=== PATIENT | male | born 1940 | race Caucasian/White ===

== ENCOUNTER → 2017-05-28 | Outpatient (CLI) | payer MEDICARE, OTHER ==
[2017-05-28 14:40] LABS: HCT 43.2 % (39.0-53.0); HGB 14.8 gm/dL (13.0-17.5); MCH 32.2 pg (25.0-35.0); MCHC 34.3 g/dL (31.0-37.0); Mean Platelet Volume 6.7; Platelet Count 184 k/uL (150-450); RDW 13.2 % (11.5-15.5); WBC 5.5 k/uL (3.8-10.6)
[2017-05-28 14:49] LABS: ALT 37 U/L (21-72); AST 23 U/L (17-59); Albumin 4.6 g/dL (3.5-5.0); Alkaline Phosphatase 45 U/L (38-126); Anion Gap 10 mmol/L; Blood Urea Nitrogen 33 mg/dL (9-20); Calcium 9.9 mg/dL (8.4-10.2); Carbon Dioxide 28 mmol/L (22-30); Chloride 103 mmol/L (98-107); Glucose 107 mg/dL (74-99); Potassium 4.8 mmol/L (3.5-5.1); Sodium 141 mmol/L (137-145); Total Bilirubin 0.7 mg/dL (0.2-1.3)
[2017-05-28 14:57] LABS: Appearance,Urine Clear (Clear); Bilirubin,Urine Negative (Negative); Blood,Urine Negative (Negative); Color,Urine Yellow; Glucose,Urine (UA) Negative (Negative); Ketones,Urine Negative (Negative); Leukocyte Esterase,Urine Negative (Negative); Nitrite,Urine Negative (Negative); PH, Urine 5.5 (5.0-8.0); Protein,Urine Trace (Negative); Specific Gravity,Urine 1.025 (1.001-1.035)
[2017-05-28 15:02] LABS: Prothrombin Time 26.5 sec (9.0-12.0)
== END | disposition home or self-care (01) ==
LOC: LABPAT 13:47
PROVIDERS: ATTEND Orthopaedic Surgery Sports Medicine
DX: Z01.812 Encounter for preprocedural laboratory examination (principal); Z01.818 Encounter for other preprocedural examination
CPT/HCPCS: 36415; 80053; 81003; 85027; 85610; 85730; 87070

== ENCOUNTER 2017-06-06 11:32 | Inpatient (IN) | payer MEDICARE, OTHER ==
[~2017-06-06 11:32] MED LIST: ACETAMINOPHEN TAB 500 MG TAB PO ONE; DEXAMETHASONE SOD PHOSPHATE 10 MG/ML 1 ML VIAL IV ONE; LACTATED RINGERS 1,000 ML IV SCH; LIDOCAINE 1% 20 ML VIAL (10MG/ML) FOR IV START INTRADERMA PRN; MELOXICAM 7.5 MG TAB PO ONE; MIDAZOLAM 2 MG/2 ML VIAL IV PRN; ONDANSETRON 4 MG/2 ML VIAL IVP ONE; ROPIVACAINE 246.25 MG, EPINEPHrine 0.5 MG, KETOROLAC 30 MG, cloNIDine HCL/PF 80 MCG, WA... MISCELLANE ONE; SCOPOLAMINE 1.5MG/72HR PATCH TRANSDERM ONE; TRANEXAMIC ACID 1,000 MG in SODIUM CHLORIDE 0.9% 50 ML IVPB ONE; ceFAZolin IN SWFI 2 GM/20 ML SYRINGE IVP ONE
[2017-06-06 12:49] LABS: INR 1.3 (<1.2); Prothrombin Time 11.9 sec (9.0-12.0)
[2017-06-06] MEDS ORDERED: ROCURONIUM BROMIDE 10 MG/ML 10 ML VIAL IV ONE (13:34)
[2017-06-06] MEDS ORDERED: SODIUM CHLORIDE 0.9% 100 ML BAG ONE (13:34)
[2017-06-06] MEDS ORDERED: PROPOFOL 10 MG/ML 20 ML VIAL IV ONE (13:34)
[2017-06-06] MEDS ORDERED: fentaNYL (PF) 50 MCG/ML 2 ML AMP ONE (13:34)
[2017-06-06] MEDS ORDERED: GLYCOPYRROLATE 0.2 MG/ML 2 ML VIAL ONE (13:34)
[2017-06-06] MEDS ORDERED: NEOSTIGMINE 1 MG/ML 10 ML VIAL ONE (13:34)
[2017-06-06] MEDS ORDERED: MIDAZOLAM 2 MG/2 ML VIAL ONE (13:34)
[2017-06-06] MEDS ORDERED: LABETALOL 5 MG/ML VIAL MDV ONE (13:34)
[2017-06-06] MEDS ORDERED: TRANEXAMIC ACID 1,000 MG/10 ML VIAL ONE (13:34)
[2017-06-06] MEDS ORDERED: PHENYLEPHRINE-0.9% NACL SYG 1 MG/10 ML SYRINGE ONE (13:34)
[2017-06-06] MEDS ORDERED: LIDOCAINE 1% INJ 10MG/ML (20 ML MDV) ONE (13:34)
[2017-06-06] MEDS ORDERED: SUCCINYLCHOLINE CHLORIDE 100 MG/5 ML SYR IV ONE (13:34)
[2017-06-06] MEDS ORDERED: ceFAZolin 1,000 MG in SODIUM CHLORIDE 0.9% 1,000 ML IRRIGATION ONE ×5 (13:43→15:03)
[2017-06-06] MEDS ORDERED: NALOXONE 0.4 MG/ML 1 ML VIAL IV PRN (15:54)
[2017-06-06] MEDS ORDERED: MAGNESIUM HYDROXIDE 2,400 MG/10 ML CUP PO PRN (15:54)
[2017-06-06] MEDS ORDERED: HYDROcodone/APAP 7.5-325MG 1 EACH TAB PO PRN ×2 (15:54)
[2017-06-06] MEDS ORDERED: TEMAZEPAM 15 MG CAP PO PRN (15:54)
[2017-06-06] MEDS ORDERED: ONDANSETRON 4 MG/2 ML VIAL IVP PRN (15:54)
[2017-06-06] MEDS ORDERED: NA PHOS,M-B/NA PHOS,DI-BA 133 ML ENEMA RECTAL PRN (15:54)
[2017-06-06] MEDS ORDERED: BISACODYL 10 MG SUPP RECTAL PRN (15:54)
[2017-06-06] MEDS ORDERED: hydrOXYzine PAMOATE 25 MG CAP PO PRN (15:54)
[2017-06-06] MEDS ORDERED: traMADol 50 MG TAB PO PRN (15:54)
[2017-06-06] MEDS ORDERED: DIAZEPAM 5 MG TAB PO PRN (15:54)
[2017-06-06] MEDS ORDERED: HYDROmorphone 4 MG/ML 1 ML SYRINGE IVP PRN ×3 (15:54)
[2017-06-06] MEDS: HYDROmorphone 0.5 MG/0.5 ML SYRINGE IVP PRN ×6 (15:55→16:34)
--- NOTE | 2017-06-06 16:15 | XR ---
Limited left knee HISTORY: Status post left knee arthroplasty 2 views of the left knee Patient is status post left knee arthroplasty. There is anatomic alignment. Lucency in the soft tissu es compatible with postop state. IMPRESSION: Orthopedic follow-up
--- NOTE | 2017-06-06 17:13 | OP ---
OPERATIVE REPORT DATE OF PROCEDURE: 06/06/2017 PREOPERATIVE DIAGNOSIS: Left knee osteoarthrosis. POSTOPERATIVE DIAGNOSIS: Left knee osteoarthrosis. OPERATION: Left total knee arthroplasty. ANESTHESIA: Spinal with sedation. SURGEON: Ayo Guthrie MD. INTERNET PROJECT MANAGER: Juan Syed PA-C. ESTIMATED BLOOD LOSS: 100 mL. TOURNIQUET TIME: 59 minutes at 250 mmHg. COMPLICATIONS: None apparent. DRAINS: None. DISPOSITION: Post-Anesthesia Care Unit. INDICATIONS: Dariel is a very pleasant 76-year-old male with longstanding history of left knee pain. History and physical examination are consist with advanced left knee osteoarthrosis. He has been through significant nonoperative management up to this point. Further treatment options were discussed and he has decided to go forward with left total knee arthroplasty. The risks of the procedure were discussed with him in detail. These risks include but not limited to risk of infection, nerve damage, bleeding, pain, and a small risk of deep vein thrombosis which could lead to fatal pulmonary embolism. There is also risk of loosening of the implant which could require revision operation. The patient understands these risks. All of his questions were answered to his satisfaction. Appropriate informed consent was obtained. PROCEDURE DESCRIPTION: The patient was identified in the preoperative holding area. Surgical site was marked by both the patient and myself. He was given 2 grams of Ancef IV for prophylactic purposes. He was then transferred to the operative suite and was placed supine on the operating room table. A spinal anesthetic was then administered and dosed per the anesthesia department without apparent complication. Examination under anesthesia was then performed. The patient was 5 degrees shy of full extension. He had 100 degrees of flexion. The medial collateral ligament, lateral collateral ligament and posterior cruciate ligaments were stable. Tourniquet was then placed high on the left upper thigh and well padded in preparation for surgery. The patient's left lower extremity was then prepped and draped in the usual sterile fashion. A standard surgical pause was then undertaken to ensure that we were operating on the correct site and that appropriate preoperative antibiotics had been given. All staff in the room were in agreement and we proceeded. The outlines of the patella were marked with a surgical pen. A planned 12 cm vertical incision centered over the patella was marked with the surgical pen. The leg was then exsanguinated with an Esmarch dressing. The knee was then flexed and the tourniquet was inflated to 250 mmHg. The total tourniquet time for the procedure was 59 minutes. Incision was then made with a 10 blade scalpel. Dissection was carried down sharply to the overlying fascia. Great care was taken to minimize the skin flaps. The knee was then exposed using a standard medial parapatellar approach. A small cuff of quadriceps tendon was left for suturing. He was in a bit of varus preoperatively. A standard medial release was then made. Superficial medial collateral ligament was dissected off the bone around to the posterior aspect of the proximal tibia. The medial meniscus was then excised as well. The lateral meniscus was also released anteriorly. The leg was then externally rotated. The patella was everted and the knee was flexed. Retractors were then placed to protect the collateral ligaments. I then proceeded to remove the infrapatellar fat pad. This was excised sharply tangentially with the fibers of the patellar tendon. I then proceeded to remove the peripheral osteophytes. This was done with a rongeur. I then proceeded with the distal femoral resection. He did have a small flexion contracture. An extra 2 mm resection was planned for. This was an 11 mm resection. The femoral canal was then entered in the midline of the femur approximately 10 mm anterior to the origin of the posterior cruciate ligament. The anay was then advanced down to the center of the femur and placed intramedullary. Based on preoperative radiographs, the angle between the anatomic and mechanical axis of the femur was approximately 4 to 5 degrees. The valgus angle of the distal femoral cutting guide was then set at 4 degrees for the left knee. The distal femoral cutting guide was then advanced over the intramedullary anay. This was seated firmly against the femur. I then, as mentioned, planned to take 11 mm off the distal femur. The cutting block was then secured onto the femur with pins. The jig was then removed and the distal femoral cut was made through the slot of the block. The pins were then removed. The distal femoral cutting block was removed. The accuracy of the distal femoral cuts was checked with 2 flat bars. I then proceed with femoral sizing. The posterior referencing sizing guide was held firmly against the resected distal surface of the femur. The posterior condyles were resting on the posterior plane of the guide. The sizing stylus was then placed onto the anterior femur. The size was measured as a size 10. I then assessed for femoral rotation. The plan was for 3 degrees of external rotation. Three degrees of external rotation was placed onto the jig. These holes were then marked. I then confirmed the rotation by 3 separate methods. This was done using the epicondylar axis as well as Whitesides line and posterior referencing. It was deemed that the external rotation was proper. I then went forward with placing the femoral cutting block. This was placed over the previously placed pin holes. The scot wing was then placed onto the anterior slots to ensure that we would not notch the anterior femur with the anterior femoral cut. I then proceeded with the anterior femoral cut. This was flush with the anterior cortex of the femur. The posterior cuts were then made followed by the anterior chamfer cut and then the posterior chamfer cut. The cutting block was then removed. Throughout the resection, the collateral ligaments were protected with retractors. I then placed a trial size 10 femur. It fit very nice medial to lateral and fit flush with the distal end of the femur. The drill holes were then made. I then proceed with the tibial cut. I planned for a cruciate-retaining knee. The guide was placed and set for varus, valgus and for slope. The height was set for an approximate 2 mm resection from the medial tibial plateau, which was the lower side. I was happy with the alignment and the amount of resection. The cutting block was then pinned to the proximal tibia. The alignment anay was removed and the proximal tibia was resected with a reciprocating saw. Again this was done with retractors protecting the collateral ligaments as well as the posterior cruciate ligament. I then proceeded to evaluate the flexion and extension gaps. A 10 mm block was placed. The flexion and extension gaps were equal. I then proceeded with resection of the posterior osteophytes. He had moderate posterior osteophytes. This was done using a curved osteotome. This resected the posterior osteophytes, and posterior capsule stripping was also done off the posterior aspect of the femur at this time. The osteophytes were removed. I then proceeded with resection of the patella. The thickness of the patella was measured using a caliper. The thickness was 25 mm. Thickness of the anticipated patellar dome was taken into account. The resection was then performed and confirmed to be equal in 4 quadrants using a caliper. Approximately 14 mm of bone remained after the resection. A 35 x 9 standard patellar trial was then placed. The holes were then drilled and the trial was then placed. I then proceeded with sizing the tibial plate. A size G tibial plate fit very nicely. I then placed the trial femur and the tibial tray and the patellar button. A 10 mm trial tibial insert was also placed. The components fit very nicely. He had full extension and flexion. The extension and flexion gaps were equal and stable to both varus and valgus stress. The patella tracked appropriately. Tibial tray rotation was marked with a Bovie. This was externally rotated properly. I then proceed with tibial preparation. I first drilled the femoral holes and removed the femoral component. The tibial tray was then set for proper external rotation as well as mediolateral placement onto the tibia. It was then pinned into place. I then proceeded with punching the keel. I then decided to proceed with cementing of all of our components. The knee was thoroughly irrigated with sterile saline solution via pulse lavage. The lateral geniculate artery was identified and cauterized. All blood was removed from the bone of the tibia, femur and patella with pulse lavage. I then proceed with cementing. Two packs of antibiotic bone cement were prepared on the back table by the surgical elastic knitter hand frame. I then proceeded with cementing of the tibia first. The cement was impacted into the keel as well as deeply seated into the bone. A second coat of cement was then placed. The tibia was then impacted into place. Excess cement was removed with tissue Daniel's and jokers. I then proceeded with cementing of the femoral component. Femoral component was also cemented using standard technique. Excess cement was removed. A 10 mm trial insert was placed into the knee. It was brought into full extension with a constant axial load placed until the cement had hardened. The patellar component was then cemented. This was held firmly with a compressive device until the cement had dried. When the cement had dried, the knee was taken out of extension. All excess cement was removed from around the prosthesis. I then trialed the knee with a 10 mm insert. Flexion and extension gaps were appropriate. The knee was stable. It came into full extension. I decided to go forward with a 10 mm cross-linked cruciate-retaining tibial insert. The polyethylene was then placed onto the tibial tray and locked into place. The knee was then reduced. The knee was again further irrigated with sterile saline solution with antibiotic added. The tourniquet was then deflated. Total tourniquet time for the procedure was 59 minutes at 250 mmHg. Final components were Melania Persona size 10 cruciate-retaining femoral component, a size G tibial tray, a 10 mm medial-congruent cruciate-retaining polyethylene insert and a 35 x 9 mm patella. I then proceeded with closure. Again the knee was thoroughly irrigated. The quadriceps tendon and the medial retinaculum were reapproximated with #2 Ethibond suture. The extensor mechanism was then closed with a running #2 Quill suture. Subcutaneous tissues were then closed with 2-0 Vicryl interrupted suture. The skin was closed with a running 3-0 Quill suture. Dermabond was applied to the incision. Sterile compressive dressing was then applied. All sponge and needle counts were deemed correct prior to closure. The patient tolerated the procedure without apparent complication. He was transferred to the recovery room in stable condition. MMODL / ELON: [id number] /
[2017-06-06 17:40] VITALS: BMI 29.3
[2017-06-06] MEDS ORDERED: WARFARIN 5 MG TAB PO ONE (18:00)
--- NOTE | 2017-06-06 18:07 | P.CONS ---
History of Present Illness - Reason for Consult Atrial fibrillation, DVT, gastroesophageal reflux disease - History of Present Illness Patient is a very pleasant 76-year-old gentleman was admitted for severe osteoarthritis of the left knee and elective surgery for left knee osteoarthritis patient postoperatively clinically doing well did not pass gas yet I saw him in the immediate postoperative period patient blood pressure is stable patient does have history of atrial fibrillation rate controlled at this point of time patient had history of DVT in the past after surgery in the left leg for which patient was on Coumadin which is being temporally held for his surgery patient was resumed back on 5 mg of Coumadin patient's INR is presently 1.3 patient denied any fever chills dysuria nausea vomiting patient is not on any rate control medication patient other medical problems include hyperlipidemia. Review of Systems REVIEW OF SYSTEMS: CONSTITUTIONAL: No fever, no malaise, no fatigue. HEENT: No recent visual problems or hearing problems. Denied any sore throat. CARDIOVASCULAR: No chest pain, orthopnea, PND, no palpitations, no syncope. PULMONARY: No shortness of breath, no cough, no hemoptysis. GASTROINTESTINAL: No diarrhea, no nausea, no vomiting, no abdominal pain. Normoactive bowel sounds. NEUROLOGICAL: No headaches, no weakness, no numbness. HEMATOLOGICAL: Denies any bleeding or petechiae. GENITOURINARY: Denies any burning micturition, frequency, or urgency. MUSCULOSKELETAL/RHEUMATOLOGICAL: Denies any joint pain, swelling, or any muscle pain. ENDOCRINE: Denies any polyuria or polydipsia. The rest of the 14-point review of systems is negative. Past Medical History Past Medical History: Atrial Fibrillation, Deep Vein Thrombosis (DVT), Eye Disorder, GERD/Reflux, Hyperlipidemia, Osteoarthritis (OA) Additional Past Medical History / Comment(s): DVT LEFT LEG. History of Any Multi-Drug Resistant Organisms: None Reported Past Surgical History: Adenoidectomy, Tonsillectomy Additional Past Surgical History / Comment(s): RIGHT FOOT NERVE . LEFT FOOT TENDONS. Past Anesthesia/Blood Transfusion Reactions: No Reported Reaction Smoking Status: Never smoker - Past Family History Mother Family Medical History: Cancer Medications and Allergies Home Medications Medication Instructions Recorded Confirmed Type Ibuprofen [Motrin Ib] 200 - 400 mg PO Q6H PRN 05/31/17 06/06/17 History Omeprazole 20 mg PO QAM 05/31/17 05/31/17 History Pravastatin Sodium [Pravachol] 40 mg PO PC-SUPPER 05/31/17 06/06/17 History Warfarin [Coumadin] 5 mg PO PC-SUPPER 05/31/17 06/06/17 History Docusate [Colace] 100 mg PO BID #60 capsule 06/06/17 Rx HYDROcodone/APAP 7.5-325MG [[place] 1 - 2 each PO Q6HR PRN #90 tab 06/06/17 Rx 7.5-325] Allergies Allergy/AdvReac Type Severity Reaction Status Date / Time No Known Allergies Allergy Verified 06/06/17 17:04 Physical Exam Vitals: Vital Signs Temp Pulse Pulse Pulse Resp BP Pulse Ox 06/06/17 17:32 98 F 88 16 142/84 97 06/06/17 16:57 70 18 139/84 97 06/06/17 16:42 71 18 147/80 97 06/06/17 16:25 73 18 162/79 97 06/06/17 16:10 79 18 148/84 97 06/06/17 15:55 97.2 F L 83 22 131/78 95 06/06/17 12:18 96.7 F L 82 16 143/91 98 Intake and Output 06/06/17 06/06/17 06/06/17 06:59 14:59 22:59 Intake Total 402 101 Output Total 100 Balance 402 1 Intake: IV 402 101 Output: Estimated Blood Loss 100 Other: Weight 106.594 kg Patient Weight 06/07/17 06:59 Weight 106.594 kg PHYSICAL EXAMINATION: GENERAL: The patient is alert and oriented x3, not in any acute distress. Well developed, well nourished. HEENT: Pupils are round and equally reacting to light. EOMI. No scleral icterus. No conjunctival pallor. Normocephalic, atraumatic. No pharyngeal erythema. No thyromegaly. CARDIOVASCULAR: S1 and S2 present. No murmurs, rubs, or gallops. PULMONARY: Chest is clear to auscultation, no wheezing or crackles. ABDOMEN: Soft, nontender, nondistended, normoactive bowel sounds. No palpable organomegaly. MUSCULOSKELETAL: Deferred to orthopedic surgery EXTREMITIES: No cyanosis, clubbing, or pedal edema. NEUROLOGICAL: Gross neurological examination did not reveal any focal deficits. SKIN: No rashes. Results Labs: Abnormal Lab Results - Last 24 Hours (Table) 06/06/17 Range/Units 12:25 INR 1.3 H (<1.2) Assessment and Plan Plan: -Atrial fibrillation: Rate controlled continue with anti-coagulation, patient's chads score is low will not require any bridging -History of DVT patient was appropriately resumed back on Coumadin immediately after surgery no further anti-correlation of quitting is necessary at this time. -Hyperlipidemia -Gastroesophageal reflux disease -Left knee arthroplasty postoperative day 0: Pain management and postoperative management as per primary service. We'll continue to follow the patient on as-needed basis thank you for letting with participate in this patient's care
[2017-06-06] MEDS: SODIUM CHLORIDE 0.9% 1,000 ML IV SCH ×2 (21:19)
[2017-06-06] MEDS: ceFAZolin IN SWFI 2 GM/20 ML SYRINGE IVP SCH (21:20)
[2017-06-06] MEDS: PRAVASTATIN SODIUM 40 MG TAB PO SCH (21:21)
[2017-06-06] MEDS: SENNOSIDES-DOCUSATE SODIUM 1 EACH TAB PO SCH (21:27)
[2017-06-07] MEDS: SODIUM CHLORIDE 0.9% 1,000 ML IV SCH ×2 (04:33→13:17)
[2017-06-07] MEDS: ceFAZolin IN SWFI 2 GM/20 ML SYRINGE IVP SCH (04:34)
[2017-06-07] MEDS ORDERED: PANTOPRAZOLE 40 MG TABLET PO SCH (07:30)
[2017-06-07 07:40] LABS: Basophils % (A) 0 %; Eosinophils % (A) 0 %; HCT 39.4 % (39.0-53.0); HGB 12.9 gm/dL (13.0-17.5); Lymphocytes # (A) 0.6 k/uL (1.0-4.8); Lymphocytes % (A) 6 %; MCH 32.3 pg (25.0-35.0); MCHC 32.8 g/dL (31.0-37.0); MCV 98.5 fL (80.0-100.0); Mean Platelet Volume 6.7; Monocytes # (A) 0.4 k/uL (0-1.0); Monocytes % (A) 3 %; Neutrophils # (A) 9.6 k/uL (1.3-7.7); Neutrophils % (A) 90 %; Platelet Count 143 k/uL (150-450); RDW 14.3 % (11.5-15.5); WBC 10.6 k/uL (3.8-10.6)
[2017-06-07 07:52] LABS: INR 1.2 (<1.2); Prothrombin Time 11.5 sec (9.0-12.0)
--- NOTE | 2017-06-07 09:05 | P.DS ---
Providers Date of admission: 06/06/17 11:52 Expected date of discharge: 06/07/17 Attending physician: Ayo Guthrie Consults: 06/06/17 15:54 Consult Physician Routine Consulting Provider: Karen Arango Consult Reason/Comments: post op medical management Do you want consulting provider notified?: Yes Primary care physician: Norman Boo - Discharge Diagnosis(es) (1) Primary osteoarthritis of left knee Current Visit: Yes Status: Acute (2) S/P total knee arthroplasty Current Visit: Yes Status: Acute Hospital Course: This is a 76-year-old male with known history of degenerative arthritis of the left knee. The patient presents for evaluation. After discussion and consideration patient elects to proceed with total knee arthroplasty. The patient is seen preoperatively by Dr. Guthrie and cleared for surgery. Patient is admitted to [facility] on 06/06/2017 for total knee arthroplasty. The procedures performed without complication or sequelae. The patient is doing well postoperatively. Labs and vital signs are stable on day of discharge. On day of discharge patient's knee incision is healing well. There is minimal erythema. There is no drainage noted at this time. There is minimal soft tissue swelling to the knee. Patient has full foot and ankle motion without difficulty or pain. Neurovascular status to the left lower extremity is intact. Patient is discharged home in good condition. Please see med rec for accurate list of home medications. Plan - Discharge Summary Discharge Rx Participant: No New Discharge Prescriptions: New Docusate [Colace] 100 mg PO BID #60 capsule HYDROcodone/APAP 7.5-325MG [[place] 7.5-325] 1 - 2 each PO Q6HR PRN #90 tab PRN Reason: Pain No Action Warfarin [Coumadin] 5 mg PO PC-SUPPER Pravastatin Sodium [Pravachol] 40 mg PO PC-SUPPER Omeprazole 20 mg PO QAM Ibuprofen [Motrin Ib] 200 - 400 mg PO Q6H PRN PRN Reason: Pain Discharge Medication List Ibuprofen [Motrin Ib] 200 - 400 mg PO Q6H PRN 05/31/17 [History] Omeprazole 20 mg PO QAM 05/31/17 [History] Pravastatin Sodium [Pravachol] 40 mg PO PC-SUPPER 05/31/17 [History] Warfarin [Coumadin] 5 mg PO PC-SUPPER 05/31/17 [History] Docusate [Colace] 100 mg PO BID #60 capsule 06/06/17 [Rx] HYDROcodone/APAP 7.5-325MG [[place] 7.5-325] 1 - 2 each PO Q6HR PRN #90 tab [Rx] Follow up Appointment(s)/Referral(s): Ayo Guthrie MD [STAFF PHYSICIAN] - 2 Weeks Activity/Diet/Wound Care/Special Instructions: take meds as directed f/u with Dr. Guthrie in office may shower in 72 hrs WBAT resume home coumadin dose and monitoring keep wound clean and dry Discharge Disposition: HOME SELF-CARE
[2017-06-07] MEDS ORDERED: TAMSULOSIN 0.4 MG CAP.ER.24H PO SCH (11:30)
[2017-06-07] MEDS ORDERED: MULTIVITAMINS, THERA 1 EACH TAB PO SCH (12:00)
[2017-06-07] MEDS ORDERED: HYDROmorphone 2 MG TAB PO PRN ×3 (13:09→13:10)
[2017-06-07] MEDS: ACETAMINOPHEN TAB 325 MG TAB PO PRN ×2 (13:18→20:23)
--- NOTE | 2017-06-07 14:34 | P.PN ---
Subjective Patient apparently was having urinary retention, his urinary retention is secondary to opiates which he stopped taking today and hopefully he will be able to urinate until an adequate straight catheterization and bladder scanning and Flomax prescription was provided . Objective - Vital Signs Vital signs: Vital Signs Temp 98.1 F 06/07/17 07:00 Pulse 63 06/07/17 07:00 Resp 16 06/07/17 07:00 BP 110/73 06/07/17 07:00 Pulse Ox 96 06/07/17 07:00 Intake & Output 06/06/17 06/07/17 06/07/17 18:59 06:59 18:59 Intake Total 503 1100 370 Output Total 100 750 500 Balance 403 350 -130 Weight 106.594 kg 106.594 kg Intake: IV 503 Intake, IV Titration 1100 Amount Sodium Chloride 0.9% 1, 1100 000 ml @ 100 mls/hr IV . Q10H ANOOP Rx#:[id number] Oral 370 Output: Urine 750 500 Straight 750 500 Estimated Blood Loss 100 Other: Voiding Method Toilet Urinal Urinal # Voids 1 - Exam PHYSICAL EXAMINATION: GENERAL: The patient is alert and oriented x3, not in any acute distress. Well developed, well nourished. HEENT: Pupils are round and equally reacting to light. EOMI. No scleral icterus. No conjunctival pallor. Normocephalic, atraumatic. No pharyngeal erythema. No thyromegaly. CARDIOVASCULAR: S1 and S2 present. No murmurs, rubs, or gallops. PULMONARY: Chest is clear to auscultation, no wheezing or crackles. ABDOMEN: Soft, nontender, nondistended, normoactive bowel sounds. No palpable organomegaly. MUSCULOSKELETAL: Deferred to orthopedic surgery EXTREMITIES: No cyanosis, clubbing, or pedal edema. NEUROLOGICAL: Gross neurological examination did not reveal any focal deficits. SKIN: No rashes. - Labs CBC & Chem 7: 06/07/17 07:07 Labs: Abnormal Lab Results - Last 24 Hours (Table) 06/07/17 06/07/17 Range/Units 07:07 07:07 RBC 4.00 L (4.30-5.90) m/uL Hgb 12.9 L (13.0-17.5) gm/dL Plt Count 143 L (150-450) k/uL Neutrophils # 9.6 H (1.3-7.7) k/uL Lymphocytes # 0.6 L (1.0-4.8) k/uL INR 1.2 H (<1.2) Assessment and Plan Plan: -Atrial fibrillation: Rate controlled continue with anti-coagulation, patient's chads score is low will not require any bridging -History of DVT patient was appropriately resumed back on Coumadin immediately after surgery no further anti-correlation of quitting is necessary at this time. -Hyperlipidemia -Gastroesophageal reflux disease -Left knee arthroplasty postoperative day 1: Pain management and postoperative management as per primary service. -Urinary retention: Secondary to opiate management as mentioned above We'll continue to follow the patient on as-needed basis thank you for letting with participate in this patient's care
[2017-06-07] MEDS: PRAVASTATIN SODIUM 40 MG TAB PO SCH (17:54)
[2017-06-07] MEDS ORDERED: WARFARIN 7.5 MG TAB PO ONE (18:00)
[2017-06-07 20:22] VITALS: BP 135/95; PULSE 79; RESP 17; TEMP 98.1
[2017-06-07] MEDS: SENNOSIDES-DOCUSATE SODIUM 1 EACH TAB PO SCH (20:23)
== END 2017-06-07 22:07 | disposition home health service (06) | DRG 470 ==
LOC: 2ORMAIN 11:52 → 3SUR 16:14
PROVIDERS: ADMIT Orthopaedic Surgery Sports Medicine; ATTEND Orthopaedic Surgery Sports Medicine
PROC: 0SRD0J9 Replacement of Left Knee Joint with Synthetic Substitute, Cemented, Open Approach (ICD-10-PCS; principal; 2017-06-06 14:40)
DX: M17.12 Unilateral primary osteoarthritis, left knee (principal); I48.2 Chronic atrial fibrillation; I34.0 Nonrheumatic mitral (valve) insufficiency; I25.10 Atherosclerotic heart disease of native coronary artery without angina pectoris; E78.2 Mixed hyperlipidemia; R33.0 Drug induced retention of urine; T40.605A Adverse effect of unspecified narcotics, initial encounter; K21.9 Gastro-esophageal reflux disease without esophagitis; Z79.01 Long term (current) use of anticoagulants; Z79.899 Other long term (current) drug therapy; Z86.718 Personal history of other venous thrombosis and embolism
CPT/HCPCS: 85025; 85610; 88300